=== PATIENT | male | born 1980 | race Caucasian/White ===

== ENCOUNTER 2018-02-25 13:22 | Observation (INO) ==
[2018-02-25] MEDS ORDERED: Nitroglycerin 0.4 MG TAB.SUBL SL ONE (13:28)
[2018-02-25] MEDS ORDERED: Aspirin 81 MG TAB.CHEW PO ONE (13:28)
--- NOTE | 2018-02-25 13:28 | Emergency Department Note ---
Disposition Clinical Impression: Hypertensive urgency Chest pain Qualifiers: Chest pain type: unspecified Qualified Code(s): R07.9 - Chest pain, unspecified Disposition: Admitted As Inpatient Condition: Good Referrals: Jeny Lu CNP [Primary Care Provider] - Forms: ED Satisfaction Letter Time of Disposition: 18:13 Chest Pain HPI - General Chief Complaint: ED Chest Pain Stated Complaint: Chest Pain Time Seen by Provider: 02/25/18 13:22 Source: patient Mode of arrival: ambulatory Limitations: no limitations Vital Signs Reviewed: Yes Nursing Notes Reviewed: Yes - History of Present Illness HPI Narrative: 37-year-old male who presents today with chest pain in the left side the started last night went away and came back. He describes indigestion for the last couple of days. No known cardiac history. States that his mother has had a heart attack [place]. Patient states he has lost 20 pounds in last few years but was told that he was diabetic and had high blood pressure and cholesterol problems before he lost weight. Patient states he is sweaty with this and has nausea with it as well. He has never had a stress test before. He is not a smoker Pt complaint: chest pain - Related Data Home Medications Medication Instructions Recorded Confirmed HYDROcodone/Acet 5/325 mg [[place] 1 tab PO BID PRN 02/25/18 02/25/18 5-325 mg] Ibuprofen [Motrin] 800 mg PO PRN PRN 02/25/18 02/25/18 Tramadol HCl [Ultram] 50 mg PO PRN PRN 02/25/18 02/25/18 Allergies Allergy/AdvReac Type Severity Reaction Status Date / Time No Known Allergies Allergy Verified 10/19/17 19:54 Review of Systems: ROS reviewed and negative except as per HPI Chart generated with voice recognition software Nursing notes reviewed Old records reviewed All systems ED: reviewed and negative except as stated. Review of Systems: As Per HPI Chest Pain PMH - Past Medical History Medical history: Reports: no medical history, diabetes (Controlled with weight loss), other (Chronic low back pain, degenerative disc disease, obesity) Surgical history: Reports: other (Gastric bypass) Psychiatric history: Reports: no psych history - Social History Smoking Status: Never smoker Alcohol use: Reports: none Drug use: Reports: none Physical Exam General: Moderate distress, hypertensive otherwise normal vitals Head: normocephalic, atraumatic Eyes: EOMI, PERRLA mouth: moist mucous membranes Neck: NO CLA, Supple Chest wall: normal rise, no crepitus, no deformity noted Lungs: moving air well, no distress Heart: RRR, no murmur Abd: soft, nontender, BS normal : deferred MSK: strength equal in all four extremities Ext: moves all four extremities, no obvious deformities Skin: cap refill normal, warm, diaphoretic neuro : CN2-12 grossly intact, A&Ox3 Psych: normal affect,anxious Course Course Narrative: 37-year-old male presents today with severe chest pain nausea and diaphoresis been going off and on since last night. His blood pressure was very elevated when he got here. After some nitroglycerin and aspirin is feeling much better. Does have a headache from the nitroglycerin is given Tylenol for this. His initial EKG did not show any ST elevation. His first troponin 0.01. I discussed with him the name concerned about 90 think he needs a repeat troponin probably decide what to do with him and he is comfortable with that plan. We will repeat the troponin at 4 PM patient's repeat trop ok, but i am concerned that he has no bp meds at home. When his bp goes up, he develops pain, so I would like him to be observed for chest pain/hypertensive urgency. Consult placed to Dr Clay for admission here 18:30 Vital Signs Temperature 97.7 F 02/25/18 13:25 Pulse Rate 82 02/25/18 13:25 Respiratory Rate 20 02/25/18 13:25 Blood Pressure 176/104 02/25/18 13:25 O2 Sat by Pulse Oximetry 97 02/25/18 13:25 Temperature 98.7 F 02/25/18 17:54 Pulse Rate 70 02/25/18 17:54 Respiratory Rate 17 02/25/18 17:54 Blood Pressure 153/88 02/25/18 17:54 O2 Sat by Pulse Oximetry 98 02/25/18 17:54 Oxygen Delivery Oxygen Delivery Room Air Chest Pain - Medical Records Medical records reviewed: Yes I reviewed the patient's medical records. - Lab Data Lab results reviewed: Yes I reviewed the patient's lab results. Result diagrams: 02/25/18 13:45 02/25/18 13:45 Lab Results 02/25/18 02/25/18 02/25/18 Range/Units 13:45 13:45 13:45 WBC 6.8 (4.3-11.1) K/mcL RBC 5.28 (4.19-5.50) M/mcL Hgb 14.9 (12.9-16.9) g/dL Hct 44.0 (37.5-50.1) % MCV 83.3 (83.0-100.0) fL MCH 28.2 (28.0-33.3) pg MCHC 33.9 (31.6-35.5) g/dL RDW 12.3 (11.5-14.5) % Plt Count 275 (140-400) K/mcL MPV 9.6 (9.4-12.4) fL Immature Gran % 0.3 (0-4) % Seg Neutrophils % 70.9 % Lymphocytes % 20.2 % Monocytes % 7.0 % Eosinophils % 0.6 % Basophils % 1.0 % Neutrophils # 4.8 (1.6-8.9) K/mcL Lymphocytes # 1.4 (0.6-4.6) K/mcL Monocytes # 0.5 (0.0-1.3) K/mcL Eosinophils # 0.0 (0.0-0.6) K/mcL Basophils # 0.1 (0.0-0.2) K/mcL PT 11.0 (9.4-12.1) Seconds INR 1.0 APTT 37.7 H (26.0-36.0) Seconds Sodium (136-145) mEq/L Potassium (3.5-5.1) mEq/L Chloride (98-107) mEq/L Carbon Dioxide (23-29) mEq/L BUN (6-20) mg/dL Creatinine (0.70-1.30) mg/dL Est GFR ( Amer) (> 60) Est GFR (Non-Af Amer) (> 60) BUN/Creatinine Ratio (6-26) Glucose (70-105) mg/dL Calculated Osmolality (280-300) Calcium (8.6-10.3) mg/dL Total Bilirubin 0.4 (0.3-1.0) mg/dL Direct Bilirubin 0.1 (0.0-0.2) mg/dL Indirect Bilirubin 0.3 (0.0-1.2) mg/dL AST 20 (13-39) Units/L ALT 27 (7-52) Units/L Alkaline Phosphatase 87 (34-104) Units/L Troponin I (< 0.04) ng/mL Serum Total Protein 6.7 (6.4-8.9) g/dL Albumin 4.1 (3.5-5.7) g/dL Globulin 2.6 (2.4-3.5) g/dL Albumin/Globulin Ratio 1.6 (1.1-2.2) Lipase 32 (11-82) Units/L Urine Color (Yellow) Urine Clarity (Clear) Urine pH (5.0-8.0) pH Units Ur Specific [place] (1.010-1.025) Urine Protein (Neg-Trace) mg/dL Urine Glucose (UA) (Normal) mg/dL Urine Ketones (Negative) mg/dL Urine Blood (Negative) Urine Nitrite (Negative) Urine Bilirubin (Negative) Urine Urobilinogen (Normal) mg/dL Ur Leukocyte Esterase (Negative) Urine Microscopic RBC (0-3) per hpf Urine Microscopic WBC (0-3) per hpf Ur Squamous Epith Cells (None-Few) per lpf Urine Bacteria (None-Few) per hpf Ur Culture Indicated? (NO) Urine Opiates Screen (Hpcxoj=253) ng/mL Ur Oxycodone Screen (Cutoff= 100) ng/mL Ur Barbiturates Screen (Gtwqsm=558) ng/mL Ur Phencyclidine Scrn (Cutoff=25) ng/mL Ur Amphetamines Screen (Usizya=1139) ng/mL U Benzodiazepines Scrn (Mylccz=152) ng/mL Urine Cocaine Screen (Cutoff= 300) ng/mL U Marijuana (THC) Screen (Cutoff = 50) ng/mL 02/25/18 02/25/18 02/25/18 Range/Units 13:45 15:02 15:02 WBC (4.3-11.1) K/mcL RBC (4.19-5.50) M/mcL Hgb (12.9-16.9) g/dL Hct (37.5-50.1) % MCV (83.0-100.0) fL MCH (28.0-33.3) pg MCHC (31.6-35.5) g/dL RDW (11.5-14.5) % Plt Count (140-400) K/mcL MPV (9.4-12.4) fL Immature Gran % (0-4) % Seg Neutrophils % % Lymphocytes % % Monocytes % % Eosinophils % % Basophils % % Neutrophils # (1.6-8.9) K/mcL Lymphocytes # (0.6-4.6) K/mcL Monocytes # (0.0-1.3) K/mcL Eosinophils # (0.0-0.6) K/mcL Basophils # (0.0-0.2) K/mcL PT (9.4-12.1) Seconds INR APTT (26.0-36.0) Seconds Sodium 137 (136-145) mEq/L Potassium 3.5 (3.5-5.1) mEq/L Chloride 105 (98-107) mEq/L Carbon Dioxide 25 (23-29) mEq/L BUN 15 (6-20) mg/dL Creatinine 0.74 (0.70-1.30) mg/dL Est GFR ( Amer) > 60 (> 60) Est GFR (Non-Af Amer) > 60 (> 60) BUN/Creatinine Ratio 20 (6-26) Glucose 120 H (70-105) mg/dL Calculated Osmolality 286 (280-300) Calcium 9.0 (8.6-10.3) mg/dL Total Bilirubin (0.3-1.0) mg/dL Direct Bilirubin (0.0-0.2) mg/dL Indirect Bilirubin (0.0-1.2) mg/dL AST (13-39) Units/L ALT (7-52) Units/L Alkaline Phosphatase (34-104) Units/L Troponin I 0.01 (< 0.04) ng/mL Serum Total Protein (6.4-8.9) g/dL Albumin (3.5-5.7) g/dL Globulin (2.4-3.5) g/dL Albumin/Globulin Ratio (1.1-2.2) Lipase (11-82) Units/L Urine Color Yellow (Yellow) Urine Clarity Clear (Clear) Urine pH 5.5 (5.0-8.0) pH Units Ur Specific [place] > 1.030 H (1.010-1.025) Urine Protein 30 H (Neg-Trace) mg/dL Urine Glucose (UA) Normal (Normal) mg/dL Urine Ketones Negative (Negative) mg/dL Urine Blood TRACE-LYSED H (Negative) Urine Nitrite Negative (Negative) Urine Bilirubin Negative (Negative) Urine Urobilinogen Normal (Normal) mg/dL Ur Leukocyte Esterase Negative (Negative) Urine Microscopic RBC 0-3 (0-3) per hpf Urine Microscopic WBC 0-3 (0-3) per hpf Ur Squamous Epith Cells Few (None-Few) per lpf Urine Bacteria Few (None-Few) per hpf Ur Culture Indicated? NO (NO) Urine Opiates Screen Negative (Bmmfxn=988) ng/mL Ur Oxycodone Screen Negative (Cutoff= 100) ng/mL Ur Barbiturates Screen Negative (Rnpfvc=388) ng/mL Ur Phencyclidine Scrn Negative (Cutoff=25) ng/mL Ur Amphetamines Screen Negative (Zioceg=1854) ng/mL U Benzodiazepines Scrn Negative (Yqpvyr=858) ng/mL Urine Cocaine Screen Negative (Cutoff= 300) ng/mL U Marijuana (THC) Screen Negative (Cutoff = 50) ng/mL 02/25/18 Range/Units 16:20 WBC (4.3-11.1) K/mcL RBC (4.19-5.50) M/mcL Hgb (12.9-16.9) g/dL Hct (37.5-50.1) % MCV (83.0-100.0) fL MCH (28.0-33.3) pg MCHC (31.6-35.5) g/dL RDW (11.5-14.5) % Plt Count (140-400) K/mcL MPV (9.4-12.4) fL Immature Gran % (0-4) % Seg Neutrophils % % Lymphocytes % % Monocytes % % Eosinophils % % Basophils % % Neutrophils # (1.6-8.9) K/mcL Lymphocytes # (0.6-4.6) K/mcL Monocytes # (0.0-1.3) K/mcL Eosinophils # (0.0-0.6) K/mcL Basophils # (0.0-0.2) K/mcL PT (9.4-12.1) Seconds INR APTT (26.0-36.0) Seconds Sodium (136-145) mEq/L Potassium (3.5-5.1) mEq/L Chloride (98-107) mEq/L Carbon Dioxide (23-29) mEq/L BUN (6-20) mg/dL Creatinine (0.70-1.30) mg/dL Est GFR ( Amer) (> 60) Est GFR (Non-Af Amer) (> 60) BUN/Creatinine Ratio (6-26) Glucose (70-105) mg/dL Calculated Osmolality (280-300) Calcium (8.6-10.3) mg/dL Total Bilirubin (0.3-1.0) mg/dL Direct Bilirubin (0.0-0.2) mg/dL Indirect Bilirubin (0.0-1.2) mg/dL AST (13-39) Units/L ALT (7-52) Units/L Alkaline Phosphatase (34-104) Units/L Troponin I < 0.03 (< 0.04) ng/mL Serum Total Protein (6.4-8.9) g/dL Albumin (3.5-5.7) g/dL Globulin (2.4-3.5) g/dL Albumin/Globulin Ratio (1.1-2.2) Lipase (11-82) Units/L Urine Color (Yellow) Urine Clarity (Clear) Urine pH (5.0-8.0) pH Units Ur Specific [place] (1.010-1.025) Urine Protein (Neg-Trace) mg/dL Urine Glucose (UA) (Normal) mg/dL Urine Ketones (Negative) mg/dL Urine Blood (Negative) Urine Nitrite (Negative) Urine Bilirubin (Negative) Urine Urobilinogen (Normal) mg/dL Ur Leukocyte Esterase (Negative) Urine Microscopic RBC (0-3) per hpf Urine Microscopic WBC (0-3) per hpf Ur Squamous Epith Cells (None-Few) per lpf Urine Bacteria (None-Few) per hpf Ur Culture Indicated? (NO) Urine Opiates Screen (Zmcuvf=302) ng/mL Ur Oxycodone Screen (Cutoff= 100) ng/mL Ur Barbiturates Screen (Loojqc=267) ng/mL Ur Phencyclidine Scrn (Cutoff=25) ng/mL Ur Amphetamines Screen (Kwbley=1366) ng/mL U Benzodiazepines Scrn (Wmkxzj=316) ng/mL Urine Cocaine Screen (Cutoff= 300) ng/mL U Marijuana (THC) Screen (Cutoff = 50) ng/mL - Radiology Data Radiology results reviewed: Yes I reviewed the patient's radiology results. cc: Jeny Lu; Kenyetta Alatorre; ~ EXAMINATION: SINGLE VIEW OF THE CHEST 02/25/2018 1:38 pm COMPARISON: Correlation is made to chest portion of an acute abdominal series dated September 14, 2014. HISTORY: ORDERING SYSTEM PROVIDED HISTORY: chest pain Acute chest pain, atypical. Initial encounter. FINDINGS: The cardiomediastinal silhouette is within normal range. Lungs are clear. There is no focal pulmonary consolidation, pleural effusion, pneumothorax, or evidence of airspace pulmonary edema. Persistent blunting of the left lateral costophrenic sulcus. XR/XR chest 1V portable IMPRESSION: 1. No radiographic finding to account for patient's chest pain. 2. Persistent blunting of the left lateral costophrenic sulcus, not significantly changed since 2013. This is probably due to pleural thickening. D/ / Sawyer Rossi MD / Sawyer Rossi MD Interpreting Provider: Sawyer Rossi MD - EKG Data EKG attestation: Yes I reviewed and interpreted this EKG. EKG results narrative: EKG interpreted by myself as a sinus rhythm with a rate of 74 QTc [address] elevation I do not a prior EKG at this time
[2018-02-25 13:52] LABS: Basophils # 0.1 K/mcL (0.0-0.2); Eosinophils % 0.6 %; Hemoglobin 14.9 g/dL (12.9-16.9); Immature Granulocytes % 0.3 % (0-4); Lymphocytes # 1.4 K/mcL (0.6-4.6); Lymphocytes % 20.2 %; Mean Corpuscular HGB Conc 33.9 g/dL (31.6-35.5); Mean Corpuscular Hemoglobin 28.2 pg (28.0-33.3); Mean Corpuscular Volume 83.3 fL (83.0-100.0); Mean Platelet Volume 9.6 fL (9.4-12.4); Monocytes # 0.5 K/mcL (0.0-1.3); Neutrophils # 4.8 K/mcL (1.6-8.9); Platelet Count 275 K/mcL (140-400); Red Blood Count 5.28 M/mcL (4.19-5.50); Red Cell Distribution Width 12.3 % (11.5-14.5); Segmented Neutrophils % 70.9 %
[2018-02-25] MEDS ORDERED: GI Cocktail 40 ML EACH PO ONE (13:55)
[2018-02-25 14:02] LABS: Activated Partial Thrombo Time 37.7 Seconds (26.0-36.0)
[2018-02-25 14:31] LABS: BUN/Creatinine Ratio 20 (6-26); Blood Urea Nitrogen 15 mg/dL (6-20); Carbon Dioxide 25 mEq/L (23-29); Chloride 105 mEq/L (98-107); Glucose 120 mg/dL (70-105); Osmolality,Calculated 286 (280-300); Potassium 3.5 mEq/L (3.5-5.1); Sodium 137 mEq/L (136-145); Troponin I 0.01 ng/mL (< 0.04); eGFR For African Americans > 60 (> 60); eGFR For Non-African Americans > 60 (> 60)
[2018-02-25 14:33] LABS: Albumin 4.1 g/dL (3.5-5.7); Albumin/Globulin Ratio 1.6 (1.1-2.2); Bilirubin,Direct 0.1 mg/dL (0.0-0.2); Bilirubin,Indirect 0.3 mg/dL (0.0-1.2); Bilirubin,Total 0.4 mg/dL (0.3-1.0); Globulin 2.6 g/dL (2.4-3.5); Total Protein 6.7 g/dL (6.4-8.9)
[2018-02-25 15:34] LABS: Color,Urine Yellow (Yellow)
[2018-02-25 15:35] LABS: Bilirubin,Urine Negative (Negative); Blood,Urine TRACE-LYSED (Negative); Clarity,Urine Clear (Clear); Glucose,Urine (UA) Normal (Normal); Ketones,Urine Negative (Negative); PH,Urine 5.5 pH Units (5.0-8.0); Protein,Urine 30 mg/dL (Neg-Trace); Specific Gravity,Urine > 1.030 (1.010-1.025)
[2018-02-25 15:36] LABS: Leukocyte Esterase,Urine Negative (Negative); Nitrite,Urine Negative (Negative); Urobilinogen,Urine Normal (Normal)
[2018-02-25 15:37] LABS: Bacteria,Urine Few per hpf (None-Few); RBC,Urine 0-3 per hpf (0-3); Squamous Epithelial Cell,Urine Few per lpf (None-Few); WBC,Urine 0-3 per hpf (0-3)
[2018-02-25 16:11] LABS: Amphetamine Screen,Urine Negative ng/mL (Cutoff=1000); Barbiturate Screen,Urine Negative ng/mL (Cutoff=200); Benzodiazepines Screen,Urine Negative ng/mL (Cutoff=200); Cannabinoid Screen,Urine Negative ng/mL (Cutoff = 50); Cocaine Screen,Urine Negative ng/mL (Cutoff= 300); Opiate Screen,Urine Negative ng/mL (Cutoff=300); Phencyclidine Screen,Urine Negative ng/mL (Cutoff=25)
[2018-02-25] MEDS ORDERED: cloNIDine HCl 0.1 MG TABLET PO ONE (16:15)
[2018-02-25] MEDS ORDERED: traMADol 50 MG TABLET PO PRN (19:11)
[2018-02-25] MEDS ORDERED: *HR* HYDROcodone/Acet 5/325 mg TABLET PO PRN (19:11)
[2018-02-25] MEDS ORDERED: Ibuprofen 800 MG TABLET PO PRN (19:11)
[2018-02-25] MEDS ORDERED: Naloxone 0.4 MG/ML INJ IVP PRN (19:11)
[2018-02-25] MEDS ORDERED: *HR* Labetalol 100 MG/20 ML MDV IVP ONE (20:14)
[2018-02-25] MEDS ORDERED: Acetaminophen 325 MG TABLET PO PRN (21:59)
[2018-02-25] MEDS: cloNIDine HCl 0.1 MG TABLET PO SCH (22:42)
[2018-02-26] MEDS: cloNIDine HCl 0.1 MG TABLET PO SCH ×2 (04:02→12:33)
[2018-02-26] MEDS ORDERED: *HR* Promethazine 25 MG/ML VIAL IVP PRN (08:14)
[2018-02-26] MEDS ORDERED: cloNIDine HCl 0.1 MG TABLET PO SCH (09:00)
[2018-02-26] MEDS ORDERED: amLODIPine 5 MG TABLET PO SCH (09:00)
--- NOTE | 2018-02-26 12:09 | Electrocardiograph Report ---
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
[2018-02-26 12:14] VITALS: BP 177/94
[2018-02-26] MEDS ORDERED: *HR* HYDROcodone/Acet 5/325 mg TABLET PO PRN (12:41)
--- NOTE | 2018-02-26 14:05 | Internal Med History&Physical ---
Date of Encounter: 02/26/18 Time of Encounter: 13:30 Assessment and Plan (1) Hypertensive urgency Current visit: Yes Status: Acute Blood pressure has improved after multiple medications given. (2) Chest pain Current visit: Yes Status: Acute Suspect noncardiac etiology based on history and physical. Repeat cardiac enzymes were ordered through emergency room. Qualifiers: Chest pain type: unspecified Qualified Code(s): R07.9 - Chest pain, unspecified Internal Medicine - H&P: HPI Chief complaint: Chest pain Admitted From: Emergency Dept Plans for Post Hospital Care: Home History of present illness: Mr. Valentin is a 37 year old male who came to the emergency room after recurrence of a left lateral chest wall pain that had awakened him approximately 0200 in the morning. He describes it as a sharp left-sided pain that was worse on movement. He took 2 Tylenol and went back to sleep. He felt better on awakening and went to work but while walking through his workplace he had recurrence of the pain and cold diaphoresis. He came to emergency room and was evaluated and found to have significantly elevated blood pressure. He was admitted to [facility] for ongoing care needs. He states the pain is still present upon movement. He denies previous similar pains. He had history of high blood pressure prior to gastric sleeve surgery 2013. He has not taken and hypertensive medication since then. He does not check blood pressures at home and does not recall pressure readings at his PCP office. Cardiovascular history otherwise is negative for chest pain on exertion . He reports walking at least 20,000 steps daily at his workplace without angina or anginal equivalents. He denies heart failure LA DVT or pulmonary embolus. He has not had cough or dyspnea. Respiratory history is significant for having smoked from age [age]. He has no known chronic lung disease. Past Med Surg Social Fam HX - Past Medical History Medical history: no medical history, diabetes, other Psychiatric history: no psych history - Past Surgical History Surgical History: other - Social History Smoking Status: Former smoker Smokeless Tobacco Status: No Alcohol use: occasionally Drug use: none Internal Medicine - H&P: Meds HYDROcodone/Acet 5/325 mg [[place] 5-325 mg] 1 tab PO BID PRN 02/25/18 [History] Ibuprofen [Motrin] 800 mg PO PRN PRN 02/25/18 [History] Tramadol HCl [Ultram] 50 mg PO PRN PRN 02/25/18 [History] 3 Allergy/AdvReac Type Severity Reaction Status Date / Time No Known Allergies Allergy Verified 10/19/17 19:54 All Systems PM: A 10-system review of systems was performed and is negative for pertinent findings except as documented above in the HPI. Review of systems: Gen.: He states his weight has decreased from approximately 600 pounds in 2013 to present weight of 305 pounds following gastric sleeve surgery. Cardiovascular: As per history of present illness Respiratory: As per history of present illness GI: He reports he had postoperative complications from gastric sleeve surgery with development of an abscess requiring percutaneous drainage 2013. He denies any recurrent problems. He has had intermittent mild diffuse abdominal tenderness since the gastric surgery. He denies disorders of his liver gallbladder or exocrine pancreas : He denies hematuria dysuria or kidney stones Neurologic: He denies large distribution strokes or seizures. Endocrine: He was diagnosed with DM 2 at age 24 but discontinued medication at the time of the weight loss surgery. He has history of hyperlipidemia. He denies known thyroid disease. Hematology/oncology: He denies blood disorders cancers or anemia Psychiatric: He denies anxiety depression or other mental health issues [place] skeletal: He has pain in his legs but denies gout or other bone joint or muscle disorders. - Constitutional Vitals: Temp Pulse Resp BP Pulse Ox 100.5 F H 89 21 177/94 95 02/26/18 11:35 02/26/18 11:35 02/26/18 11:35 02/26/18 11:35 02/26/18 11:35 Exam: Gen.: He is a well-developed overweight male lying in bed who appears in minimal distress at present time HEENT: Head is atraumatic and normal cephalic. Eyes: EOMI. There is no scleral icterus. Mouth: Mucosa is moist. Neck: Supple and nontender. There is no thyromegaly or adenopathy noted. Heart: Regular without murmurs gallops or ectopics. Lungs: No wheezes or crackles are heard. Chest/ribs: He is tender on compression of his ribs at the site of his reported chest pain. He states "that is the pain" on palpating the area. Abdomen: Soft and nontender. No masses or guarding are noted. Extremities: There is no cyanosis edema or clubbing noted. Dorsalis pedis and posttibial pulses are 1-2 over 2 bilaterally. Neurologic: Mental status: He is talkative and a good historian. Cranial nerves : Smile is symmetric. Forehead wrinkles bilaterally. Tongue protrudes midline. EOMI. Motor: There is no pronator drift. Cerebellar: Finger to nose is intact bilaterally. Skin: Warm and dry Internal Med - H&P Results - Labs CBC & Chem 7: 02/25/18 13:45 02/25/18 13:45 Labs: Cardiac Enzymes 02/25/18 02/26/18 02/26/18 Range/Units 19:40 01:28 07:35 Troponin I < 0.03 < 0.03 < 0.03 (< 0.04) ng/mL
--- NOTE | 2018-02-26 14:17 | Discharge Summary ---
Date of Encounter: 02/26/18 Time of Encounter: 13:30 - Discharge Diagnosis (1) Hypertensive urgency Priority: Primary Status: Acute (2) Chest pain Priority: Secondary Status: Acute Qualifiers: Chest pain type: unspecified Qualified Code(s): R07.9 - Chest pain, unspecified Hospital course: Mr. Valentin is a 37 year old male who came to the emergency room after recurrence of a left lateral chest wall pain that had awakened him approximately 0200 in the morning. He describes it as a sharp left-sided pain that was worse on movement. He took 2 Tylenol and went back to sleep. He felt better on awakening and went to work but while walking through his workplace he had recurrence of the pain and cold diaphoresis. He came to emergency room and was evaluated and found to have significantly elevated blood pressure. He was admitted to [facility] for ongoing care needs. Initial orders were written by the emergency room physician. I saw him on February 26 and performed a history physical and discharge. He was given oral and IV medications and his blood pressure improved. He will continue with Toprol- XL and amlodipine at discharge. His PCP can monitor pressure and adjust medications as needed. Repeat cardiac enzymes showed no evidence of myocardial damage. I felt he likely had chest pain of chest wall origin. Because of his significant hypertension I recommended he avoid NSAIDs and use Tylenol and [place] for pain control. His PCP can follow-up on this. He spiked low-grade fever the afternoon of discharge. I suspect he may have a viral infection. WBC in ER was normal with no left shift. Chest x-ray was unremarkable. His PCP can monitor this. - Time Spent with Patient Total time spent providing and/or coordinating discharge services: - Discharge Medications Prescriptions: amLODIPine [Norvasc] 5 mg PO DAILY #30 tablet Metoprolol XL (24 HR) Succ [Toprol XL] 50 mg PO DAILY #30 tab.er.24h Home Medications: HYDROcodone/Acet 5/325 mg [[place] 5-325 mg] 1 tab PO BID PRN 02/25/18 [History] Tramadol HCl [Ultram] 50 mg PO PRN PRN 02/25/18 [History] Metoprolol XL (24 HR) Succ [Toprol XL] 50 mg PO DAILY #30 tab.er.24h 02/26/18 [ Rx] amLODIPine [Norvasc] 5 mg PO DAILY #30 tablet 04/07/18 [Rx] Allergies/Adverse Reactions: 3 Allergy/AdvReac Type Severity Reaction Status Date / Time No Known Allergies Allergy Verified 10/19/17 19:54 Date of admission: 02/25/18 18:47 Primary care physician: Jeny Lu CNP - Constitutional Vitals: Temp Pulse Resp BP Pulse Ox 100.5 F H 89 21 177/94 95 02/26/18 11:35 02/26/18 11:35 02/26/18 11:35 02/26/18 11:35 02/26/18 11:35 - Patient Status Disposition: Home, Self-Care Condition: Good Overall status at discharge: patient is progressing back to baseline - Discharge Instructions Follow Up With: Jeny Lu CNP [Primary Care Provider] - 1 week - Diet and Activity Activity: resume usual activities as tolerated Diet: advance to your usual diet
== END 2018-02-26 15:04 | disposition home or self-care (01) ==
LOC: INPPIK 13:22 → EMEROOPIK 13:22 → INPPIK 19:21
PROVIDERS: ADMIT Internal Medicine; ATTEND Internal Medicine

== ENCOUNTER 2021-08-12 10:10 | Inpatient (IN) ==
[2021-08-12] MEDS ORDERED: 0.9 % Sodium Chloride 1,000 ML IVC ONE (10:23)
[2021-08-12] MEDS ORDERED: Isovue-370 500 ML BOTTLE IVP ONE (10:25)
[2021-08-12 10:51] LABS: Basophils % 0.2 %; Hematocrit 34.9 % (37.5-50.1); Hemoglobin 11.5 g/dL (12.9-16.9); Immature Granulocytes % 0.3 % (0-4); Lymphocytes # 0.8 K/mcL (0.6-4.6); Lymphocytes % 13.1 %; Mean Corpuscular Hemoglobin 25.6 pg (28.0-33.3); Mean Corpuscular Volume 77.6 fL (83.0-100.0); Mean Platelet Volume 10.3 fL (9.4-12.4); Monocytes # 0.2 K/mcL (0.0-1.3); Monocytes % 3.6 %; Neutrophils # 4.9 K/mcL (1.6-8.9); Platelet Count 227 K/mcL (140-400); Red Cell Distribution Width 14.8 % (11.5-14.5); Segmented Neutrophils % 82.8 %; White Blood Count 5.9 K/mcL (4.3-11.1)
[2021-08-12 11:02] LABS: INR 1.3; Prothrombin Time 14.4 Seconds (9.4-12.1)
[2021-08-12 11:09] LABS: Alanine Aminotransferase 25 Units/L (7-52); Albumin 3.4 g/dL (3.5-5.7); Albumin/Globulin Ratio 1.2 (1.1-2.2); Alkaline Phosphatase 43 Units/L (34-104); Aspartate Amino Transferase 35 Units/L (13-39); BUN/Creatinine Ratio 9 (6-26); Bilirubin,Direct 0.1 mg/dL (0.0-0.2); Bilirubin,Indirect 0.3 mg/dL (0.0-1.0); Bilirubin,Total 0.4 mg/dL (0.3-1.0); Blood Urea Nitrogen 7 mg/dL (6-20); Calcium 7.9 mg/dL (8.6-10.3); Carbon Dioxide 26 mEq/L (23-29); Chloride 98 mEq/L (98-107); Globulin 2.9 g/dL (2.4-3.5); Glucose 116 mg/dL (70-105); Magnesium 1.8 mg/dL (1.6-2.6); Osmolality,Calculated 275 (280-300); Phosphorous 2.3 mg/dL (2.7-4.5); Potassium 3.5 mEq/L (3.5-5.1); Sodium 133 mEq/L (136-145); Total Protein 6.3 g/dL (6.4-8.9); eGFR For African Americans > 60 (> 60); eGFR For Non-African Americans > 60 (> 60)
[2021-08-12 11:10] LABS: Troponin I 0.03 ng/mL (< 0.04)
[2021-08-12] MEDS ORDERED: Naloxone 0.4 MG/ML INJ IVP PRN ×2 (12:24→13:56)
[2021-08-12] MEDS ORDERED: Ondansetron 4 MG/2 ML VIAL IVP PRN (12:24)
[2021-08-12] MEDS ORDERED: Remdesivir 200 MG in 0.9 % Sodium Chloride 100 ML IVPB ONE (12:33)
[2021-08-12] MEDS ORDERED: Benzonatate 100 MG CAPSULE PO PRN (12:38)
[2021-08-12] MEDS ORDERED: 0.9 % Sodium Chloride 1,000 ML IVC SCH (12:45)
[2021-08-12] MEDS ORDERED: Ipratropium 1 PUFF INHALER IH ONE (13:25)
[2021-08-12] MEDS: Ipratropium 1 PUFF INHALER IH SCH ×2 (13:45→20:44)
[2021-08-12 13:57] LABS: ABG Base Excess -2 mEq/L (-2 to 3); ABG HCO3 22 mEq/L (21-27); ABG Oxygen Saturation 88 % (95-98); ABG PCO2 34 mmHg (35-45); ABG PH 7.42 pH Units (7.32-7.45); ABG PO2 54 mmHg (85-104); ABG TCO2 23 mEq/L (20-26)
[2021-08-12] MEDS ORDERED: *HR* HYDROcodone/Acet 5/325 mg TABLET PO PRN (14:01)
[2021-08-12] MEDS ORDERED: cloNIDine HCL 0.1 MG TABLET PO PRN (14:01)
[2021-08-12] MEDS ORDERED: Acetaminophen 325 MG TABLET PO PRN (14:06)
[2021-08-12 14:26] LABS: Bilirubin,Urine Negative (Negative); Blood,Urine Small (Negative); Clarity,Urine Clear (Clear); Color,Urine Yellow (Yellow); Glucose,Urine (UA) Normal (Normal); Ketones,Urine 40 mg/dL (Negative); Leukocyte Esterase,Urine Negative (Negative); Nitrite,Urine Negative (Negative); Protein,Urine 30 mg/dL (Neg-Trace); Urobilinogen,Urine Normal (Normal)
[2021-08-12 14:39] LABS: Amorphous Sediment,Urine Few per hpf (None-Few); RBC,Urine 0-3 per hpf (0-3); Squamous Epithelial Cell,Urine Few per hpf (None-Few)
[2021-08-12] MEDS ORDERED: *HR* Dextrose 50 % in Water (Syg) 50 ML SYRINGE IVP PRN (15:06)
[2021-08-12] MEDS ORDERED: Dextrose Gel 15 GM/37.5 ML TUBE PO PRN ×2 (15:06)
[2021-08-12] MEDS ORDERED: D5% in Water 1,000 ML IVC PRN (15:06)
[2021-08-12] MEDS ORDERED: Azithromycin 250 MG TABLET PO ONE (15:15)
[2021-08-12] MEDS ORDERED: Insulin LISPRO 300 UNITS/3 ML VIAL SUBQ SCH ×2 (16:30→21:00)
[2021-08-12] MEDS ORDERED: carvediloL 25 MG TABLET PO SCH (17:00)
[2021-08-12 19:10] LABS: ABG Base Excess -2 mEq/L (-2 to 3); ABG HCO3 24 mEq/L (21-27); ABG Oxygen Saturation 91 % (95-98); ABG PCO2 40 mmHg (35-45); ABG PH 7.38 pH Units (7.32-7.45); ABG PO2 62 mmHg (85-104); ABG TCO2 25 mEq/L (20-26)
[2021-08-12] MEDS ORDERED: levoFLOXacin 750 MG/150 ML 750 MG/150 ML BAG IVPB SCH (20:00)
[2021-08-12 20:20] VITALS: PULSE 63
[2021-08-12] MEDS ORDERED: Lactobacillus 1 EACH CAP.SPRINK PO SCH (21:00)
[2021-08-12 23:30] VITALS: BP 175/95; TEMP 97.7
[2021-08-13] MEDS: Ipratropium 1 PUFF INHALER IH SCH (01:12)
[2021-08-13 01:27] VITALS: RESP 18; O2SAT 96
[2021-08-13] MEDS ORDERED: *HR* Enoxaparin 40 MG/0.4 ML SYRINGE SQ SCH (06:00)
[2021-08-13] MEDS ORDERED: NIFEdipine XL (24 HR) 30 MG TAB.ER.24 PO SCH (09:00)
[2021-08-13] MEDS ORDERED: Aspirin Enteric Coated 81 MG Tablet PO SCH (09:00)
[2021-08-13] MEDS ORDERED: lisinopriL 20 MG TABLET PO SCH (09:00)
[2021-08-13] MEDS ORDERED: Dexamethasone Sodium Phos/PF 10 MG/ML VIAL IVP SCH (09:00)
[2021-08-13] MEDS ORDERED: Remdesivir 100 MG in 0.9 % Sodium Chloride 100 ML IVPB SCH (13:00)
[2021-08-13] MEDS ORDERED: Azithromycin 250 MG TABLET PO SCH (16:00)
== END 2021-08-13 01:32 | disposition other institution (70) | DRG 137 ==
LOC: INPPIK 10:10 → EMEROOPIK 10:10 → INPPIK 14:07
PROVIDERS: ADMIT Internal Medicine; ATTEND Internal Medicine